=== PATIENT | male | born 1985 | race Caucasian/White ===

== ENCOUNTER 2017-02-13 18:04 | Emergency (ER) | payer MEDICAID ==
[~2017-02-13] VITALS: Ht 172.7 cm; Wt 68.0 kg
[2017-02-13 18:11] VITALS: BP 146/88; PULSE 85; RESP 18; TEMP 98.3; O2SAT 97
[2017-02-13] MEDS ORDERED: DIPH-TET-PERTUS Vaccine 0.5 ML VIAL (ADACEL) IM ONE (19:15)
[2017-02-13] MEDS ORDERED: IBUPROFEN 800 MG TABLET PO ONE (19:15)
[2017-02-13] MEDS ORDERED: LIDOCAINE 4% TOPICAL 50 ML BOTTLE MM ONE (19:15)
[2017-02-13] MEDS ORDERED: BACITRACIN 1 GM OINT TP ONE (19:15)
[2017-02-13] MEDS ORDERED: LIDOCAINE 2%, 20 ML MDV IJ ONE (19:15)
[2017-02-13 20:13] VITALS: BP 146/88; PULSE 85; RESP 18; TEMP 98.3; O2SAT 97
== END 2017-02-13 20:13 | disposition home or self-care (01) ==
LOC: SED 18:04
DX: S61.216A Laceration without foreign body of right little finger without damage to nail, initial encounter (principal); F17.210 Nicotine dependence, cigarettes, uncomplicated; Z71.6 Tobacco abuse counseling; W25.XXXA Contact with sharp glass, initial encounter; Y93.G1 Activity, food preparation and clean up; Y92.89 Other specified places as the place of occurrence of the external cause; Y99.8 Other external cause status
CPT/HCPCS: 12002; 90471; 90715; 99283; J2001

== ENCOUNTER 2017-02-20 17:13 | Emergency (ER) | payer MEDICAID ==
[~2017-02-20] VITALS: Ht 172.7 cm; Wt 68.0 kg
[2017-02-20 17:21] VITALS: BP_SYST 145
[2017-02-20 17:53] VITALS: BP_SYST 145
== END 2017-02-20 17:53 | disposition home or self-care (01) ==
LOC: SED 17:13
DX: S61.216D Laceration without foreign body of right little finger without damage to nail, subsequent encounter (principal); R20.9 Unspecified disturbances of skin sensation; F17.210 Nicotine dependence, cigarettes, uncomplicated; Z71.6 Tobacco abuse counseling; X58.XXXD Exposure to other specified factors, subsequent encounter; Y92.89 Other specified places as the place of occurrence of the external cause; Y99.8 Other external cause status
CPT/HCPCS: 99283

== ENCOUNTER 2018-05-26 17:37 | Emergency (ER) | payer MEDICAID ==
[~2018-05-26] VITALS: Ht 172.7 cm; Wt 68.0 kg
[2018-05-26 17:49] VITALS: BP_SYST 150
--- NOTE | 2018-05-26 18:18 | NUR ---
Called pt, no answer
--- NOTE | 2018-05-26 18:22 | NUR ---
Called pt, no anwer
--- NOTE | 2018-05-26 20:00 | NUR ---
Patient to ER bed 8 for evaluation.
--- NOTE | 2018-05-26 20:10 | NUR ---
Patient to ER via triage with c/o left eye visual changes, and right hand pain. Patient reports that symptoms have been going on for about 3 weeks. Patient is awake, alert and oriented in no acute distress, vital signs stable, respirations even and unlabored, skin warm and dry to touch. Awaiting evaluation by ER MD, will continue to observe and assess.
--- NOTE | 2018-05-26 20:20 | NUR ---
ER Dr. Franklin at bedside examining patient.
[2018-05-26 20:25] VITALS: BP_SYST 142
--- NOTE | 2018-05-26 20:25 | NUR ---
Patient given written and verbal discharge instructions and verbalizes understanding. ER MD discussed with patient the results and treatment provided. Patient in stable condition. ID arm band removed. Patient educated on pain management and to follow up with PMD. Pain Scale 0/10. Opportunity for questions provided and answered.
== END 2018-05-26 20:25 | disposition home or self-care (01) ==
LOC: SED 17:37
DX: S40.212A Abrasion of left shoulder, initial encounter (principal); R20.2 Paresthesia of skin; F15.129 Other stimulant abuse with intoxication, unspecified; R03.0 Elevated blood-pressure reading, without diagnosis of hypertension; Z90.89 Acquired absence of other organs; V18.0XXA Pedal cycle driver injured in noncollision transport accident in nontraffic accident, initial encounter; Y93.89 Activity, other specified; Y92.410 Unspecified street and highway as the place of occurrence of the external cause; Y99.8 Other external cause status
CPT/HCPCS: 99282

== ENCOUNTER 2018-12-01 22:47 | Emergency (ER) | payer MEDICAID ==
[~2018-12-01] VITALS: Ht 172.7 cm; Wt 68.0 kg
[2018-12-01 23:10] VITALS: BP_SYST 150
[2018-12-02] MEDS ORDERED: NS 1000 ML IV.SOLN IV ONE (01:00)
[2018-12-02] MEDS ORDERED: PIPERACILLIN/TAZO 3.375 GM in NS 50 ML IV ONE ×2 (01:00→07:30)
[2018-12-02] MEDS ORDERED: VANCOMYCIN HCL 1,000 MG in NS 250 ML IV ONE (01:00)
[2018-12-02] MEDS ORDERED: VANCOMYCIN HCL 1000 MG/VIAL IV ONE (01:19)
[2018-12-02] MEDS ORDERED: PIPERACILLIN/TAZOBACTAM 3.375 GM/VIAL (ZOSYN) IV ONE ×2 (01:19→07:49)
[2018-12-02 01:36] LABS: BILIRUBIN,URINE NEGATIVE (NEGATIVE); BLOOD, URINE NEGATIVE (NEGATIVE); CLARITY/URINE CLEAR (CLEAR); COLOR,URINE YELLOW (YELLOW); GLUCOSE,URINE NEGATIVE (NEGATIVE); KETONES,URINE NEGATIVE (NEGATIVE); LEUKOCYTE ESTERASE ,URINE NEGATIVE (NEGATIVE); NITRITE, URINE NEGATIVE (NEGATIVE); PROTEIN URINE TRACE (NEGATIVE)
[2018-12-02 01:43] LABS: HEMATOCRIT 35.9 % (36-54); HEMOGLOBIN 12.2 g/dL (14.0-18.0); RED BLOOD CELL COUNT(AUTO) 4.02 MIL/uL (4.2-6.2); WHITE BLOOD COUNT (AUTO) 17.1 K/uL (4.8-10.8)
[2018-12-02 01:44] LABS: BASOPHILS # (AUTO) 0.2 K/uL (0.0-0.2); EOSINOPHILS # (AUTO) 0.1 K/uL (0.0-0.4); EOSINOPHILS % (AUTO) 0.8 % (0.0-4.0); LYMPHOCYTES # (AUTO) 2.5 K/uL (1.0-5.5); LYMPHOCYTES % (AUTO) 14.6 % (20.5-51.5); MEAN CORPUSCULAR HEMOGLOBIN 30 pg (27-31); MEAN CORPUSCULAR HGB CONC 34 % (32-36); MEAN CORPUSCULAR VOLUME 89 fL (79.0-98.0); MONOCYTES # (AUTO) 1.4 K/uL (0.0-1.0); MONOCYTES % (AUTO) 8.3 % (1.7-9.3); NEUTROPHILS # (AUTO) 12.9 K/uL (1.8-7.7); NEUTROPHILS % (AUTO) 75.3 % (40.0-70.0); PLATELET COUNT (AUTO) 500 K/uL (130-430); RED CELL DISTRIBUTION WIDTH 13.9 % (9.0-15.0)
[2018-12-02] MEDS ORDERED: IOHEXOL 100 ML IV ONE (01:44)
[2018-12-02 01:45] LABS: BACTERIA,URINE FEW /HPF (None Seen); RBC,URINE 0-3 /HPF (0-3); WBC,URINE 0-3 /HPF (0-3)
[2018-12-02 01:48] LABS: CALCIUM 8.6 mg/dL (8.4-11.0); CREATININE 0.83 mg/dL (0.55-1.30); POTASSIUM 3.3 mmol/L (3.5-5.1)
[2018-12-02 01:54] LABS: ALBUMIN 2.8 g/dL (3.4-4.8); TOTAL BILIRUBIN 0.4 mg/dL (0.0-1.0)
[2018-12-02] MEDS ORDERED: NACL 0.9% 1,000 ML IV ONE (07:30)
[2018-12-02 08:40] VITALS: BP_SYST 145
== END 2018-12-02 08:40 | disposition short-term general hospital (02) ==
LOC: SED 22:47
DX: A41.9 Sepsis, unspecified organism (principal); L03.213 Periorbital cellulitis; E87.6 Hypokalemia; D64.9 Anemia, unspecified; F15.90 Other stimulant use, unspecified, uncomplicated; F11.90 Opioid use, unspecified, uncomplicated
CPT/HCPCS: 36415; 70481; 70486; 80053; 81000; 83605; 85025; 85610; 85730; 87040; 87070; 87081; 87086; 93005; 96365; 96367; 96368; 99285; J2543; J3370; J7030; J7040; Q9967